=== PATIENT | male | born 1965 | race African-American/Black ===

== ENCOUNTER 2018-02-24 15:30 | Emergency (ER) | payer MEDICAID ==
[~2018-02-24] VITALS: Ht 185.4 cm; Wt 86.4 kg
[~2018-02-24 15:30] MED LIST: NOCURR
[2018-02-24 15:36] VITALS: BP 116/72
[2018-02-24] MEDS ORDERED: KETOROLAC TROMETHAMINE 30 MG/ML VIAL IM ONE (16:30)
== END 2018-02-24 17:19 | disposition home or self-care (01) ==
LOC: EMS 15:31
DX: M25.551 Pain in right hip (principal); Z88.6 Allergy status to analgesic agent; F17.210 Nicotine dependence, cigarettes, uncomplicated
CPT/HCPCS: 96372; 99283; J1885